=== PATIENT | male | born 1945 | race Caucasian/White ===

== ENCOUNTER → 2016-10-21 | Outpatient (CLI) | payer OTHER ==
--- NOTE | 2016-10-21 12:51 | DX ---
Left Foot, Three Views Indication: Pain. Findings: The normally mineralized bones are anatomically aligned. Minimal osteoarthritis involves the first metatarsophalangeal joint. The remainder of the metatarsophalangeal joints are well preser gosia. No erosions or soft tissue calcification. No periosteal reaction, bone lesion, or fracture. 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 Comment: Results were discussed with Dr. Varela.
== END ==
LOC: FIMAGING 11:38
PROVIDERS: ATTEND Emergency Medicine
DX: M19.072 Primary osteoarthritis, left ankle and foot (principal)

== ENCOUNTER → 2018-05-04 | Outpatient (CLI) | payer OTHER | LOC: BHFA 13:15 | PROVIDERS: ATTEND Internal Medicine Cardiovascular Disease | DX: I72.9 Aneurysm of unspecified site (principal); R01.1 Cardiac murmur, unspecified ==

== ENCOUNTER → 2018-05-28 | Outpatient (CLI) | payer OTHER | DX: I25.10 Atherosclerotic heart disease of native coronary artery without angina pectoris (principal) ==